=== PATIENT | male | born 1950 | race Two or more races ===

== ENCOUNTER 2018-01-12 09:56 | Outpatient (CLI) | payer OTHER ==
[~2018-01-12 09:56] MED LIST: MIRALAX12 EA PO; POLY119PG PO; SURFAK240 M1 PO; SYNTHROID50 MCG; ULTRACET PO
== END 2018-01-12 10:01 | disposition home or self-care (01) ==
LOC: RAD 501 09:56
DX: Z01.818 Encounter for other preprocedural examination (principal)

== ENCOUNTER 2023-02-25 14:33 | Emergency (ER) | payer OTHER ==
[~2023-02-25] VITALS: Ht 180.3 cm; Wt 61.2 kg
[2023-02-25] MEDS ORDERED: GUAIFENESI100 MG/52 PO (18:36)
[2023-02-25] MEDS ORDERED: PAXLOVID 300-11 EACH PO (18:36)
== END 2023-02-25 18:48 | disposition home or self-care (01) ==
LOC: ER 14:33
PROVIDERS: General Practice
DX: U07.1 COVID-19 (principal); K52.9 Noninfective gastroenteritis and colitis, unspecified; Z88.6 Allergy status to analgesic agent
CPT/HCPCS: 71045; 96365; 96366; 99284; J2405; J3490; J7042

== ENCOUNTER 2023-03-10 13:40 | Emergency (ER) | payer OTHER ==
[~2023-03-10] VITALS: Ht 177.8 cm; Wt 61.2 kg
[~2023-03-10 13:40] MED LIST changes: +GUAIFENESI100 MG/52 PO; +PAXLOVID 300-11 EACH PO
[2023-03-10 19:41] LABS: HEMATOCRIT 50.1 % (39.0-48.0); HEMOGLOBIN 16.3 g/dL (13-16.00); MEAN CELL VOLUME 87.3 fL (80.0-100.00); MEAN CORPUSCULAR HEMOGLOBIN 28.4 pg (27.00-32.0); MEAN CORPUSCULAR HGB CONC 32.5 g/dl (32.0-36.0); PLATELET COUNT 504 K/uL (150-450); RED BLOOD COUNT 5.74 M/uL (4.00-6.00); RED CELL DISTRIBUTION WIDTH 13.8 % (11.5-14.5)
[2023-03-10 20:05] LABS: BILIRUBIN TOTAL 0.44 mg/dL (0.3-1.2); CALCIUM 8.8 mg/dL (8.5-10.1); GFR 73.04; GLOBULINA 5.3 G/DL (2.4-3.5); POTASSIUM 3.84 mEq/L (3.5-5.1); TOTAL PROTEIN 8.3 gm/dL (6.4-8.2)
== END 2023-03-10 23:48 | disposition home or self-care (01) ==
LOC: ER 13:40
PROVIDERS: General Practice
DX: K52.9 Noninfective gastroenteritis and colitis, unspecified (principal); R10.32 Left lower quadrant pain; Z88.6 Allergy status to analgesic agent
CPT/HCPCS: 36415; 74177; 96365; 99284; J3490; Q9965

== ENCOUNTER 2023-04-13 07:18 | Outpatient (CLI) | payer OTHER | END 2023-04-13 07:19 | disposition home or self-care (01) | LOC: NUCLEAR 07:18 | PROVIDERS: ATTEND Internal Medicine Hematology & Oncology | DX: R59.1 Generalized enlarged lymph nodes (principal); R63.4 Abnormal weight loss | CPT/HCPCS: 78815; A9552 ==